=== PATIENT | male | born 1945 | race Caucasian/White ===

== ENCOUNTER 2016-07-22 18:59 | Emergency (ER) | payer MEDICARE ==
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
[2016-07-22] MEDS ORDERED: MORPHINE IV ONE (23:11)
[2016-07-22] MEDS ORDERED: BACITRACIN (ED) OINT PACKET TP ONE (23:11)
[2016-07-22] MEDS ORDERED: NACL 0.9% 1000 ML 1,000 ML IV ONE (23:11)
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
[2016-07-22 23:59] LABS: INR 1.18 (0.87-1.13)
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
[2016-07-23 01:55] LABS: Basophils % (Auto) 0.8 % (0.0-1.8); Eosinophils % (Auto) 4.2 % (0.0-4.3); Hematocrit 34.3 % (35.5-45.6); Hemoglobin 11.5 gm/dl (11.8-15.2); Mean Corpuscular HGB Conc 34 % (32-34); Mean Corpuscular Hemoglobin 31 pg (28-32); Mean Corpuscular Volume 93 fl (84-94); Platelet Count 141 K/mm3 (140-440); Red Blood Count 3.69 M/mm3 (3.65-5.03); Red Cell Distribution Width 12.9 % (13.2-15.2); White Blood Count 6.9 K/mm3 (4.5-11.0)
[2016-07-23 02:11] LABS: Bilirubin,Urine NEG (Negative); Blood,Urine NEG (Negative); Ketones,Urine NEG (Negative); Leukocyte Esterase,Urine NEG (Negative); Nitrite,Urine NEG (Negative); Protein,Urine <15 mg/dL mg/dL (Negative); RBC,Urine < 1.0 /HPF (0.0-6.0); Urobilinogen,Urine < 2.0 mg/dL (<2.0)
[2016-07-23 02:18] LABS: Alanine Aminotransferase 17 units/L (7-56); Albumin 3.4 g/dL (3.9-5); Albumin/Globulin Ratio 1.2 %; Alkaline Phosphatase 84 units/L (35-129); Anion Gap 16 mmol/L; BUN/Creatinine Ratio 13.33; Bilirubin,Total 0.6 mg/dL (0.1-1.2); Blood Urea Nitrogen 8 mg/dL (9-20); Calcium 8.2 mg/dL (8.4-10.2); Carbon Dioxide 24 mmol/L (22-30); Chloride 103.7 mmol/L (98-107); Glucose 101 mg/dL (75-100); Potassium 3.6 mmol/L (3.6-5.0); Sodium 140 mmol/L (137-145); Total Protein 6.3 g/dL (6.3-8.2)
[2016-07-23] MEDS ORDERED: NACL ONE (02:43)
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
[2016-07-23] MEDS ORDERED: TORADOL IV ONE (04:31)
[2016-07-23 04:35] VITALS: BP 110/70
[2016-07-23 07:41] LABS: Alanine Aminotransferase 19 units/L (7-56); Albumin 4.1 g/dL (3.9-5); Albumin/Globulin Ratio 1.2 %; Alkaline Phosphatase 91 units/L (35-129); Bilirubin,Total 0.8 mg/dL (0.1-1.2); Blood Urea Nitrogen 8 mg/dL (9-20); Calcium 9.6 mg/dL (8.4-10.2); Carbon Dioxide 25 mmol/L (22-30); Chloride 99.6 mmol/L (98-107); Glucose 71 mg/dL (75-100); Potassium 3.8 mmol/L (3.6-5.0); Sodium 142 mmol/L (137-145); Total Protein 7.6 g/dL (6.3-8.2)
[2016-07-23 07:56] LABS: Basophils % (Auto) 0.9 % (0.0-1.8); Eosinophils % (Auto) 3.2 % (0.0-4.3); Hematocrit 37.8 % (35.5-45.6); Hemoglobin 12.4 gm/dl (11.8-15.2); Mean Corpuscular HGB Conc 33 % (32-34); Mean Corpuscular Hemoglobin 31 pg (28-32); Mean Corpuscular Volume 95 fl (84-94); Platelet Count 174 K/mm3 (140-440); Red Blood Count 3.98 M/mm3 (3.65-5.03); White Blood Count 7.5 K/mm3 (4.5-11.0)
--- NOTE | 2016-07-23 08:15 | XRay Report ---
Left hand 3 views. Findings: There are no fractures or other acute findings. There is mild narrowing of the wrist joint. Impression: No acute findings.
--- NOTE | 2016-07-23 08:16 | XRay Report ---
LEFT FOREARM: AP and lateral views of the forearm demonstrate normal mineralization and contours for this patient's age. No destructive changes are noted and the adjacent soft tissues are normal. IMPRESSION: Normal left forearm.
[2016-07-23 08:35] LABS: Anion Gap 21 mmol/L
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
== END 2016-07-23 05:30 | disposition home or self-care (01) ==
LOC: ED 18:59
DX: S60.412A Abrasion of right middle finger, initial encounter (principal); S50.311A Abrasion of right elbow, initial encounter; S40.212A Abrasion of left shoulder, initial encounter; S40.211A Abrasion of right shoulder, initial encounter; J45.909 Unspecified asthma, uncomplicated; J44.9 Chronic obstructive pulmonary disease, unspecified; V98.8XXA Other specified transport accidents, initial encounter; Y93.9 Activity, unspecified; Y92.9 Unspecified place or not applicable; Y99.9 Unspecified external cause status; S80.212A Abrasion, left knee, initial encounter; M54.6 Pain in thoracic spine; S80.211A Abrasion, right knee, initial encounter; E86.0 Dehydration; K80.20 Calculus of gallbladder without cholecystitis without obstruction
CPT/HCPCS: 36415; 70450; 71111; 71260; 72125; 73030; 73070; 73090; 73130; 73560; 74177; 80053; 81001; 85025; 85610; 85730; 96361; 96374; 99284; J1885; J7030; Q9967

== ENCOUNTER 2020-05-29 18:12 | Emergency (ER) | payer MEDICARE ==
--- NOTE | 2020-05-29 19:32 | Event Note ---
ED Screening Note ED Screening Note: bilateral feet pain and swelling for a month has sores on the bilateral feet chronic SOB which he feels is worse worse with exertion no drainage or fever no calf pain wears home oxygen has asthma/copd This initial assessment/diagnostic orders/clinical plan/treatment(s) is/are subject to change based on patients health status, clinical progression and re- assessment by fellow clinical providers in the ED. Further treatment and workup at subsequent clinical providers discretion. Patient/guardian urged not to elope from the ED as their condition may be serious if not clinically assessed and managed. Initial orders include: labs, CXR, CT with runoff
[2020-05-29 20:12] LABS: Basophils % (Auto) 0.3 % (0.0-1.8); Eosinophils # (Auto) 0.1 K/mm3 (0.0-0.4); Eosinophils % (Auto) 1.5 % (0.0-4.3); Hematocrit 41.7 % (35.5-45.6); Hemoglobin 14.3 gm/dl (11.8-15.2); Lymphocytes # (Auto) 0.8 K/mm3 (1.2-5.4); Lymphocytes % (Auto) 9.9 % (13.4-35.0); Mean Corpuscular HGB Conc 34 % (32-34); Mean Corpuscular Volume 96 fl (84-94); Platelet Count 197 K/mm3 (140-440); Red Blood Count 4.34 M/mm3 (3.65-5.03); Red Cell Distribution Width 14.7 % (13.2-15.2)
[2020-05-29 20:25] LABS: INR 1.28 (0.87-1.13)
[2020-05-29 20:26] LABS: Partial Thromboplastin Time 28.9 Sec. (24.2-36.6)
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
[2020-05-29 21:02] LABS: Alanine Aminotransferase 20 units/L (7-56); Blood Urea Nitrogen 9 mg/dL (9-20); Calcium 8.9 mg/dL (8.4-10.2); Hemolysis Index 73
[2020-05-29 21:08] LABS: BUN/Creatinine Ratio 15
--- NOTE | 2020-05-29 22:35 | Emergency Department Report ---
HPI - General Chief Complaint: Extremity Injury, Lower Time Seen by Provider: 05/29/20 19:29 - HPI HPI: This is a 74-year-old male who presents to the emergency department with complaint of bilateral foot pain, swelling and "sores." Patient says that the pain and swelling has been there for "months." He is unsure how long the sores have been there because "I do not look at my feet." He spoke to someone at the [facility] and was told to come to the emergency department. The patient also complains of a left eye infection that has been going on for "months." He describes this infection as there being drainage coming from the left eye. He denies any fever, vision change, eye pain. Patient denies any pain to the calf or thigh, or any swelling in these areas. No recent travel or sick contacts at home. He has a past medical history of asthma, COPD, hypertension. He has not taken anything for his symptoms prior to presentation. He has not seen anyone regarding his symptoms prior to presentation today. ED Past Medical Hx - Past Medical History Hx Hypertension: Yes Hx Arthritis: Yes Hx Asthma: Yes Hx COPD: Yes - Surgical History Additional Surgical History: Hernia - Social History Smoking Status: Current Every Day Smoker - Medications Home Medications: Home Medications Medication Instructions Recorded Confirmed Last Taken Type Bacitracin Zinc Oint 1 applicatio TP BID #1 tube 07/23/16 01/04/20 12/31/19 Rx Ketorolac [Toradol] 10 mg PO Q6H PRN #20 tablet 07/23/16 01/04/20 12/31/19 Rx oxyCODONE [Roxicodone] 5 mg PO Q6HR PRN #15 tablet 07/23/16 01/04/20 12/31/19 Rx Ciprofloxacin HCl [Ciprofloxacin 250 mg PO BID #10 tablet 01/04/20 Unknown Rx TAB] Albuterol Mdi (or & Nicu Only) 2 puff IH QID PRN #8.5 gram 05/29/20 Unknown Rx [ProAir HFA Inhaler] Budesonide/Formoterol Fumarate 2 puff IH BID #1 hfa.aer.ad 05/29/20 Unknown Rx [Symbicort 160-4.5 Mcg Inhaler] Sulfamethoxazole/Trimethoprim 1 each PO BID #14 tablet 05/29/20 Unknown Rx [Bactrim DS TAB] Tobramycin 0.3% [Tobrex] 1 drop OS Q8HR #1 bottle 05/29/20 Unknown Rx ED Review of Systems ROS: Stated complaint: FEET Other details as noted in HPI Comment: All other systems reviewed and negative Constitutional: denies: chills, fever Eyes: denies: eye pain, vision change ENT: denies: ear pain, throat pain Respiratory: cough (chronic). denies: shortness of breath Cardiovascular: edema (b/l feet). denies: chest pain Gastrointestinal: denies: abdominal pain, vomiting Genitourinary: denies: dysuria, discharge Musculoskeletal: arthralgia (foot pain). denies: back pain Skin: lesions (sores to the feet). denies: rash Neurological: denies: headache, numbness, paresthesias Physical Exam - Physical Exam Vital Signs: Vital Signs 05/29/20 18:20 Temperature 98.0 F Pulse Rate 116 H Respiratory 18 Rate Blood Pressure 122/58 O2 Sat by Pulse 99 Oximetry Physical Exam: GENERAL: The patient is well-developed well-nourished. HENT: Normocephalic. Atraumatic. Patient has moist mucous membranes. EYES: Extraocular motions are intact. Pupils equal reactive to light bilaterally. There is some mild left conjunctival injection with some mild yellowish discharge seen to the medial canthus. NECK: Supple. Trachea is midline. CHEST/LUNGS: Clear to auscultation. There is no respiratory distress noted. HEART/CARDIOVASCULAR: Regular. There is no tachycardia. There is no murmur. ABDOMEN: Abdomen is soft, nontender. Patient has normal bowel sounds. There is no abdominal distention. SKIN: Skin is warm and dry. The patient has a few small wounds to the dorsum of the bilateral feet. They have some scabs or eschars over them. No bleeding, drainage, weeping. No surrounding erythema. NEURO: The patient is awake, alert, and oriented. The patient is cooperative. The patient has no focal neurologic deficits. Normal speech. MUSCULOSKELETAL: There is tenderness to palpation to the bilateral dorsal feet. +2/4 dorsalis pedis pulse and capillary refill less than 2 seconds. ED Course Vital Signs 05/29/20 18:20 Temperature 98.0 F Pulse Rate 116 H Respiratory 18 Rate Blood Pressure 122/58 O2 Sat by Pulse 99 Oximetry ED Medical Decision Making - Lab Data Result diagrams: 05/29/20 19:52 05/29/20 19:52 Lab Results 05/29/20 05/29/20 05/29/20 Range/Units 19:52 19:52 19:52 WBC 7.8 (4.5-11.0) K/mm3 RBC 4.34 (3.65-5.03) M/mm3 Hgb 14.3 (11.8-15.2) gm/dl Hct 41.7 (35.5-45.6) % MCV 96 H (84-94) fl MCH 33 H (28-32) pg MCHC 34 (32-34) % RDW 14.7 (13.2-15.2) % Plt Count 197 (140-440) K/mm3 Lymph % (Auto) 9.9 L (13.4-35.0) % Tucker % (Auto) 13.0 H (0.0-7.3) % Eos % (Auto) 1.5 (0.0-4.3) % Baso % (Auto) 0.3 (0.0-1.8) % Lymph # (Auto) 0.8 L (1.2-5.4) K/mm3 Tucker # (Auto) 1.0 H (0.0-0.8) K/mm3 Eos # (Auto) 0.1 (0.0-0.4) K/mm3 Baso # (Auto) 0.0 (0.0-0.1) K/mm3 Seg Neutrophils % 75.3 H (40.0-70.0) % Seg Neutrophils # 5.9 (1.8-7.7) K/mm3 PT 16.0 H (12.2-14.9) Sec. INR 1.28 H (0.87-1.13) APTT 28.9 (24.2-36.6) Sec. Sodium 141 (137-145) mmol/L Potassium 3.8 (3.6-5.0) mmol/L Chloride 101.7 (98-107) mmol/L Carbon Dioxide 26 (22-30) mmol/L Anion Gap 17 mmol/L BUN 9 (9-20) mg/dL Creatinine 0.6 L (0.8-1.3) mg/dL Estimated GFR > 60 ml/min BUN/Creatinine Ratio 15 % Glucose 74 L (75-100) mg/dL Calcium 8.9 (8.4-10.2) mg/dL Total Bilirubin 0.60 (0.1-1.2) mg/dL AST 33 (5-40) units/L ALT 20 (7-56) units/L Alkaline Phosphatase 134 H (35-129) units/L NT-Pro-B Natriuret Pep 153.8 (0-900) pg/mL Total Protein 6.6 (6.3-8.2) g/dL Albumin 4.0 (3.9-5) g/dL Albumin/Globulin Ratio 1.5 % - Radiology Data Radiology results: report reviewed, image reviewed interpreted by me: Chest x-ray does not show any acute process. There are no pleural effusions, obvious pneumonia and there is no pneumothorax. No significant cardiomegaly. CTA ABDOMEN, PELVIS, AND LOWER EXTREMITIES INDICATION / CLINICAL INFORMATION: BLE pain/swelling, sores on the feet. TECHNIQUE: Axial CT images were obtained through the abdomen, pelvis and lower extremities after injection of IV contrast. 3 plane MIP / 3D reconstructions were produced. All CT scans at this location are performed using CT dose reduction for ALARA by means of automated exposure control. COMPARISON: None available. FINDINGS: CTA ABDOMEN: Abdominal Aorta: Mild to moderate atherosclerotic plaque. No aneurysm or dissection. Celiac Artery: No significant abnormality. Superior Mesenteric Artery: No significant abnormality. Right Renal Artery: No significant abnormality. Left Renal Artery: No significant abnormality. Inferior Mesenteric Artery: No si gnificant abnormality. CTA PELVIS: RIGHT: - Common Iliac Artery: No significant abnormality. - Internal Iliac Artery: No significant abnormality. - External Iliac Artery: No significant abnormality. LEFT: - Common Iliac Artery: Approximately 50% stenosis secondary to calcific and soft atherosclerotic plaque. - Internal Iliac Artery: No significant abnormality. - External Iliac Artery: No significant abnormality. CTA LOWER EXTREMITIES: RIGHT LOWER EXTREMITY: - Common Femoral Artery: No significant abnormality. - Superficial Femoral Artery: No significant abnormality. - Profunda Femoral Artery: No significant abnormality. - Popliteal Artery: No significant abnormality. - Anterior Tibial Artery: No significant abnormality. - Tibioperoneal Trunk: No significant abnormality. - Posterior Tibial Artery: No significant abnormality. - Peroneal Artery: No significant abnormality. - Ankle runoff: Three vessel. LEFT LOWER EXTREMITY: - Common Femoral Artery: No significant abnormality. - Superficial Femoral Artery: No significant abnormality. - Profunda Femoral Artery: No significant abnormality. - Popliteal Artery: No significant abnormality. - Anterior Tibial Artery: No significant abnormality. - Tibioperoneal Trunk: No significant abnormality. - Posterior Tibial Artery: No significant abnormality. - Peroneal Artery: No significant abnormality. - Ankle runoff: Three vessel. NONTARGET STRUCTURES: ABDOMEN:Uncomplicated cholelithiasis. PELVIS:No significant abnormality. LOWER EXTREMITIES:No significant abnormality. SKELETAL: Chronic fracture of the left inferior pubic ramus. ADDITIONAL FINDINGS: None. IMPRESSION: 1. 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 2. Three-vessel runoff is seen to the feet bilaterally. No flow-limiting stenosis. 3. Mild to moderate abdominal aortic atherosclerosis. No aneurysm or dissection. 4. Uncomplicated cholelithiasis. - Medical Decision Making This patient presents to the emergency department with a complaint of pain and swelling, as well as sores, to the bilateral feet. Patient does appear to have some small ulcerative type wounds or sores to the bilateral dorsal feet. Currently there are some eschars covering them. No surrounding erythema. No appreciable edema. There is palpable dorsalis pedis pulse bilaterally and capillary refill is less than 2 seconds. The labs, ordered through triage, are mostly unremarkable including CBC, metabolic panel and proBNP. Patient does not have any calf or thigh pain, or swelling, so this appears less consistent with DVT. Patient had a CT angiography of the abdomen and pelvis with lower extremity runoff that did not show any significant arterial insufficiency, bony abnormality or signs of osteomyelitis. For these reasons the patient appears safe for discharge home at this time. He has been given a prescription for Bactrim DS, and outpatient referrals for podiatry and the wound care clinic. We discussed smoking cessation. He will return to the emergency department with any worsening of his symptoms or with any acute distress. The patient may have a mild left-sided conjunctivitis and has been placed on tobramycin eyedrops. I also agreed to refill the patient's COPD inhalers, albuterol and Symbicort. Critical Care Time: No Critical care attestation.: If time is entered above; I have spent that time in minutes in the direct care of this critically ill patient, excluding procedure time. ED Disposition Clinical Impression: Bilateral foot pain Foot ulceration Qualifiers: Laterality: bilateral Non-pressure ulcer stage: unspecified non-pressure ulcer stage Qualified Code(s): L97.519 - Non-pressure chronic ulcer of other part of right foot with unspecified severity; L97.529 - Non-pressure chronic ulcer of other part of left foot with unspecified severity Conjunctivitis Qualifiers: Conjunctivitis type: unspecified Laterality: left Qualified Code(s): H10.9 - Unspecified conjunctivitis Disposition: TO HOME OR SELFCARE Is pt being admited?: No Condition: Stable Instructions: Bacterial Conjunctivitis, Adult, Foot Pain Additional Instructions: Please follow-up with your primary care physician in the next few days. I have given you a referral for a local automobile upholsterer apprentice, Dr. Jones, to follow-up regarding your foot pain. I have also given you a referral for the local wound care clinic regarding the sores/ulcers on your feet. Take all of the medications as prescribed. Clean your feet with soap and water and then make sure they remain dry. Return to the emergency department with any worsening of your symptoms, new or concerning symptoms not addressed during this current emergency department visit, or with any acute distress. Prescriptions: Sulfamethoxazole/Trimethoprim [Bactrim DS TAB] 1 each PO BID #14 tablet Albuterol Mdi (or & Nicu Only) [ProAir HFA Inhaler] 2 puff IH QID PRN #8.5 gram PRN Reason: Shortness Of Breath Budesonide/Formoterol Fumarate [Symbicort 160-4.5 Mcg Inhaler] 2 puff IH BID #1 hfa.aer.ad Tobramycin 0.3% [Tobrex] 1 drop OS Q8HR #1 bottle Referrals: [facility] [Outside] - 2-3 Days ROSIBEL JONES DPM [Staff Physician] - 2-3 Days [facility] [Outside] - 2-3 Days Time of Disposition: 23:20
--- NOTE | 2020-05-29 22:57 | Cat Scan Report ---
CTA ABDOMEN, PELVIS, AND LOWER EXTREMITIES INDICATION / CLINICAL INFORMATION: BLE pain/swelling, sores on the feet. TECHNIQUE: Axial CT images were obtained through the abdomen, pelvis and lower extremities after injection of IV contrast. 3 plane MIP / 3D reconstructions were produced. All CT scans at this location are performe d using CT dose reduction for ALARA by means of automated exposure control. COMPARISON: None available. FINDINGS: CTA ABDOMEN: Abdominal Aorta: Mild to moderate atherosclerotic plaque. No aneurysm or dissection. Celiac Artery: No significant abnormality. Superior Mesenteric Artery: No significant abnormality. Right Renal Artery: No significant abnormality. Left Renal Artery: No significant abnormality. Inferior Mesenteric Artery: No significant abnormality. CTA PELVIS: RIGHT: - Common Iliac Artery: No significant abnormality. - Internal Iliac Artery: No significant abnormality. - External Iliac Artery: No significant abnormality. LEFT: - Common Iliac Artery: Approximately 50% stenosis secondary to calcific and soft atherosclerotic plaq ue. - Internal Iliac Artery: No significant abnormality. - External Iliac Artery: No significant abnormality. CTA LOWER EXTREMITIES: RIGHT LOWER EXTREMITY: - Common Femoral Artery: No significant abnormality. - Superficial Femoral Artery: No significant abnormality. - Profunda Femoral Artery: No significant abnormality. - Popliteal Artery: No significant abnormality. - Anterior Tibial Artery: No significant abnormality. - Tibioperoneal Trunk: No significant abnormality. - Posterior Tibial Artery: No significant abnormality. - Peroneal Artery: No significant abnormality. - Ankle runoff: Three vessel. LEFT LOWER EXTREMITY: - Common Femoral Artery: No significant abnormality. - Superficial Femoral Artery: No significant abnormality. - Profunda Femoral Artery: No significant abnormality. - Popliteal Artery: No significant abnormality. - Anterior Tibial Artery: No significant abnormality. - Tibioperoneal Trunk: No significant abnormality. - Posterior Tibial Artery: No significant abnormality. - Peroneal Artery: No significant abnormality. - Ankle runoff: Three vessel. NONTARGET STRUCTURES: ABDOMEN:Uncomplicated cholelithiasis. PELVIS:No significant abnormality. LOWER EXTREMITIES:No significant abnormality. SKELETAL: Chronic fracture of the left inferior pubic ramus. ADDITIONAL FINDINGS: None. IMPRESSION: 1. Approximately 50% stenosis of the left common iliac artery secondary to calcific and soft atherosc lerotic plaque. 2. Three-vessel runoff is seen to the feet bilaterally. No flow-limiting stenosis. 3. Mild to moderate abdominal aortic atherosclerosis. No aneurysm or dissection. 4. Uncomplicated cholelithiasis. Signer Name: Wilder Sosa MD Signed: 05/29/2020 10:52 PM Workstation Name: [id number]
[2020-05-29] MEDS ORDERED: SULFAMETHOXAZOLE/TRIMETHOPRIM 800/160MG DS TAB PO ONE (23:07)
[2020-05-29 23:31] VITALS: BP 99/70
== END 2020-05-30 00:25 | disposition home or self-care (01) ==
LOC: ED 18:12
DX: L97.529 Non-pressure chronic ulcer of other part of left foot with unspecified severity (principal); L97.519 Non-pressure chronic ulcer of other part of right foot with unspecified severity; H10.9 Unspecified conjunctivitis; I10 Essential (primary) hypertension; M19.91 Primary osteoarthritis, unspecified site; J44.9 Chronic obstructive pulmonary disease, unspecified; Z79.899 Other long term (current) drug therapy; Z88.0 Allergy status to penicillin
CPT/HCPCS: 36415; 71045; 75635; 80053; 83880; 85025; 85610; 85730; 99284; Q9967